=== PATIENT | female | born 1940 | race Caucasian/White ===

== ENCOUNTER 2019-01-11 17:31 | Inpatient (IN) | payer BC ==
--- NOTE | 2019-01-11 18:19 | PDOC ---
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 The symptom started on Monday all of sudden a/w watery diarrhea x 1 episode. She went to [facility] from Monday to Monday and evaluated for dizziness. Workups include ECHO and CT head were negative. She's diagnosed with dehydration and received fluids as treatment. While at [place], she also had a fever of 104 per her sister. The worsening dizziness prompted her to come in to the ED here at [facility]. She usually ambulates with a walker and now unable to ambulate and having poor PO intake from the dizziness. Denies fever, chills, sob, chest pain, abd pain. 01/11/19 19:04 Orthostatic BP is negative. Will need imaging to r/o ischemic stroke. Paged neurology sonogram technician regarding MRI w/ MRA or just MRI. Sent UA/UC, CMP, CBC, CXR Past History - Past Medical History Allergies/Adverse Reactions: Allergies Allergy/AdvReac Type Severity Reaction Status Date / Time aspirin Allergy Unknown Verified 01/11/19 17:52 cortisone Allergy Unknown Verified 01/11/19 17:52 Penicillins Allergy Unknown Verified 01/11/19 17:52 ibuprofen [From Motrin] Allergy Verified 01/11/19 17:52 tetanus immune globulin Allergy Verified 01/11/19 17:52 anti-inflammatories Allergy Unknown Uncoded 01/11/19 17:52 Home Medications: Ambulatory Orders Alendronate Sodium [Binosto] 70 mg PO WEEKLY 01/11/19 Clopidogrel Bisulfate [Plavix] 75 mg PO DAILY 01/11/19 Docusate Sodium 100 mg PO BID 01/11/19 Duloxetine HCl [Cymbalta -] 60 mg PO DAILY 01/11/19 Loratadine 10 mg PO DAILY 01/11/19 Meclizine HCl 25 mg PO DAILY 01/11/19 Ranitidine [Zantac -] 150 mg PO DAILY 01/11/19 Anemia: No Asthma: No Cancer: No Cardiac Disorders: No CVA: Yes COPD: Yes CHF: No Dementia: No Diabetes: No GI Disorders: Yes (GERD. CONSTIPATION.) Disorders: No HTN: Yes Hypercholesterolemia: No Liver Disease: No Psychiatric Problems: Yes (DEPRESSION.) Seizures: No Thyroid Disease: No - Surgical History Abdominal Surgery: No Appendectomy: No Cardiac Surgery: No Cholecystectomy: No Lung Surgery: No Neurologic Surgery: No Orthopedic Surgery: Yes (1996 R Knee repair) - Suicide/Smoking/Psychosocial Hx Smoking History: Never smoked Have you smoked in the past 12 months: No Number of Cigarettes Smoked Daily: 14 If you are a former smoker, when did you quit?: January 2016 Information on smoking cessation initiated: No 'Breaking Loose' booklet given: 03/04/16 Hx Alcohol Use: No Drug/Substance Use Hx: No Substance Use Type: None Hx Substance Use Treatment: No Review of Systems - Review of Systems Able to Perform ROS?: Yes Is the patient limited Barbadian proficient: No Constitutional: Yes: Loss of Appetite. No: Chills, Fever, Weakness Respiratory: No: Cough, Shortness of Breath Cardiac (ROS): No: Chest Pain ABD/GI: No: Nausea, Vomiting Musculoskeletal: Yes: Back Pain Neurological: Yes: Headache, Numbness, Unsteady Gait *Physical Exam - Vital Signs Last Vital Signs Temp Pulse Resp BP Pulse Ox 98.3 F 79 16 112/59 L 92 L 01/11/19 17:31 01/11/19 17:31 01/11/19 17:31 01/11/19 17:31 01/11/19 17:31 - Physical Exam General Appearance: Yes: Appropriately Dressed. No: Apparent Distress Neck: positive: Supple. negative: Carotid bruit Respiratory/Chest: positive: Lungs Clear, Normal Breath Sounds Cardiovascular: positive: Regular Rhythm, Regular Rate, S1, S2. negative: Edema , Murmur Gastrointestinal/Abdominal: positive: Normal Bowel Sounds. negative: Tender Neurologic: positive: Fully Oriented, Alert, Numbness, Sensory Deficit. negative: Facial Droop, Confused ED Treatment Course - LABORATORY CBC & Chemistry Diagram: 01/12/19 07:00 01/12/19 07:00 *DC/Admit/Observation/Transfer Diagnosis at time of Disposition: HCAP (healthcare-associated pneumonia), Dizziness Falls Qualifiers: Encounter type: subsequent encounter Qualified Code(s): W19.XXXD - Unspecified fall, subsequent encounter - Discharge Dispostion Condition at time of disposition: Fair - Referrals - Patient Instructions - Post Discharge Activity
[2019-01-11 18:59] VITALS: BMI 27.3
--- NOTE | 2019-01-11 18:59 | PDOC ---
Attending Attestation - Resident Resident Name: Kevin Mckeon - ED Attending Attestation I have performed the following: I have examined & evaluated the patient, The case was reviewed & discussed with the resident, I agree w/resident's findings & plan, Exceptions are as noted - HPI HPI: 01/11/19 18:58 78 yo F h/o prior cVA left sided weakness here with n/v/d recently admitted to [facility] for 3 day, discharged 2 days ago. /co worsening weakness and vertigo. pt states she was tryng to get up from commode and felt worse weakness and dizziness. does have h/o prior vertigo from old strokes. does report cough. no n/v no diarreha. no headache. no change to speech. 01/11/19 20:30 - Physicial Exam PE: 01/11/19 20:31 awake alert lungs left base with crackles with wheeze, heart reg rr no mrg abd soft nt nd. ext wwp no edema. no calf tenderness. . left upper ext 5/5 righ t5/ 5. bilat legs 5.5 dysmetria on left wih finger to nose testing. CN II - XiI intact. - Medical Decision Making 01/11/19 20:32 78 yo F with h/o prior cva , vertigo , her with worsenign weakness, dizziness. dysmetria on left arm. otherwise strength intact. speech clear left lung crackles. differential infection worsening old cva sxs such as uti or pna, electrolyte abnormality, anemia, cva . plan ct head. labs cxr ua. pt with pna on cxr will treat for hcap. repeat ct head. may require repeat MRI to evaluate cerebellum. nuero consult dr Hernandez 01/11/19 20:34 NIH Stroke Scale - Initial Evaluation Level of consciousness: Alert Ask patient the month and their age: Answers both correctly Ask patient to open & close eyes; make fist and let go: Obeys both correctly Best gaze (horizontal eye movement): Normal Visual field testing: No visual field loss Facial paresis (Show teeth/raise eyebrows/close eyes tight): Normal symmetrical movement Motor Function: Left Arm: Normal Motor Function: Right Arm: Normal (extends arm 90 (or 45) degrees for 10 seconds without drift Motor Function: Left Leg: Normal (extends leg 30 degrees for 5 seconds without drift) Motor Function: Right Leg: Normal (extends leg 30 degrees for 5 seconds without drift) Limb Ataxia: Present in one limb (left arm.) Sensory(Use pinprick test arms,legs,trunk,face/side to side): Normal Best language (Describe picture, name items, read sentences): No Aphasia Dysarthria (read several words): Normal articulation Extinction and Inattention: No abnormality - Total Score NIH Stroke Scale Score: 1
--- NOTE | 2019-01-11 19:23 | PDOC ---
*Physical Exam - Vital Signs Last Vital Signs Temp Pulse Resp BP Pulse Ox 98.3 F 79 16 112/59 L 92 L 01/11/19 17:31 01/11/19 17:31 01/11/19 17:31 01/11/19 17:31 01/11/19 17:31 ED Treatment Course - LABORATORY CBC & Chemistry Diagram: 01/11/19 19:10 01/11/19 19:00 - RADIOLOGY Radiology Studies Ordered: Category Date Time Status HEAD CT WITHOUT CONTRAST [CT] Stat CT Scan 01/11/19 19:19 Ordered Medical Decision Making - Medical Decision Making 01/11/19 19:20 Patient signed out by resident Dr. Mckeon. In short patient is 78 with frequent falls, prior CVA with L sided weakness, basline ambulates with walker presenting with dizziness for 5 days and poor oral intake Seen at [facility] 4 days ago with negative ECHO and CT believed to have dehydration and recieved fluid resucitation ED Course: pending cbc, cmp, trop, ua cxr, head CT 01/11/19 19:[address] Hernandez who would like CT prior to MRI or MRI/MRA 01/11/19 19:58 CXR: L sided consolidation perihilar, midline airway, appropriate vascular markings, no blunting of costophrenic angle, no cardiomegaly, as read by this senior underwriter and attending. On exam with crackles and wheezes will dose levo and van duoneb tx admit for intractable dizziness, pna, r/o stroke *DC/Admit/Observation/Transfer Diagnosis at time of Disposition: Falls, HCAP (healthcare-associated pneumonia), Dizziness - Discharge Dispostion Condition at time of disposition: Fair Decision to Admit order: Yes - Referrals Referrals: Fiona Diane [Primary Care Provider] - - Patient Instructions - Post Discharge Activity NIH Stroke Scale - Last Known Well Date/Time & Onset Date Last Known Well: 01/07/19 Time Last Known Well: 12:00 - Initial Evaluation Level of consciousness: Alert Ask patient the month and their age: Answers both correctly Ask patient to open & close eyes; make fist and let go: Obeys both correctly Best gaze (horizontal eye movement): Normal Visual field testing: No visual field loss Facial paresis (Show teeth/raise eyebrows/close eyes tight): Normal symmetrical movement Motor Function: Left Arm: Normal Motor Function: Right Arm: Normal (extends arm 90 (or 45) degrees for 10 seconds without drift Motor Function: Left Leg: Normal (extends leg 30 degrees for 5 seconds without drift) Motor Function: Right Leg: Normal (extends leg 30 degrees for 5 seconds without drift) Limb Ataxia: No ataxia Sensory(Use pinprick test arms,legs,trunk,face/side to side): Normal Best language (Describe picture, name items, read sentences): No Aphasia Dysarthria (read several words): Normal articulation Extinction and Inattention: No abnormality - Total Score NIH Stroke Scale Score: 0
[2019-01-11 19:29] LABS: BASO % 0.8 % (0-2.0); EOS % 1.9 % (0-4.5); HEMATOCRIT 45.5 % (32.4-45.2); HEMOGLOBIN 14.9 GM/dL (10.7-15.3); LYMPH % 10.9 % (8-40); MCH 32.2 pg (25.7-33.7); MCHC 32.8 g/dl (32.0-36.0); MEAN CELL VOLUME 98.4 fl (80-96); MEAN PLT VOLUME 8.8 fl (7.5-11.1); MONO % 9.2 % (3.8-10.2); NEUT % 77.2 % (42.8-82.8); PLATELET COUNT 224 K/MM3 (134-434); RBC 4.63 M/mm3 (3.60-5.2); RDW 16.2 % (11.6-15.6); WHITE BLOOD COUNT 7.5 K/mm3 (4.0-10.0)
[2019-01-11 19:57] LABS: ALBUMIN 3.4 g/dl (3.4-5.0); ALK PHOS 114 U/L (45-117); ANION GAP 10 MMOL/L (8-16); BILIRUBIN,TOTAL 0.6 mg/dL (0.2-1); BLOOD UREA NITROGEN 16 mg/dL (7-18); CALCIUM 8.6 mg/dL (8.5-10.1); CHLORIDE 104 mmol/L (98-107); CO2 25 mmol/L (21-32); CREATININE 0.7 mg/dL (0.55-1.3); GLUCOSE,RANDOM 112 mg/dL (74-106); MAGNESIUM 2.1 mg/dL (1.8-2.4); POTASSIUM 4.1 mmol/L (3.5-5.1); SGOT/AST 18 U/L (15-37); SGPT/ALT 15 U/L (13-61); SODIUM 139 mmol/L (136-145); TOT PROT 7.3 g/dl (6.4-8.2)
[2019-01-11] MEDS ORDERED: ALBUTEROL SO4 2.5/IPRATROPIUM 0.5 INH SOL 3 ML VIAL.NEB. NEB ONE ×2 (20:03→20:39)
[2019-01-11] MEDS ORDERED: VANCOMYCIN HCL 1,500 MG in DEXTROSE 5%-WATER - 500 ML IVPB ONE (20:03)
--- NOTE | 2019-01-11 21:17 | HP ---
CHIEF COMPLAINT: dizziness PCP: Christelle HISTORY OF PRESENT ILLNESS: 78yF with PMH CVA s/p left sided weakness/unsteady gait presented to the ED with dizziness x 6 days. Pt presented to [facility] on 01/06 and was admitted for 3 days. She was treated with IVF and released. Pt reported that her dizziness had resolved in the hospital and then recurred when she was back home. Her sister reported to the ED staff that she had a fever at [place]. Pt denies fever, chills, cough, SOB, abdominal pain, N/V/D. ER course was notable for: (1) CXR with L perihilar consolidation (2) CT head pending Recent Travel: pt denies PAST MEDICAL HISTORY: CVA s/p left sided weakness/unsteady gait, macular degeneration, chronic LE pain , GERD, COPD, depression PAST SURGICAL HISTORY: R knee surgery 1996 Social History: Smoking: currently smokes 1/2 PPD, used to "smoke more", smoking since her 20s Alcohol: pt denies Drugs: pt denies Family History: unk Allergies aspirin Allergy (Unknown, Verified 01/11/19 17:52) cortisone Allergy (Unknown, Verified 01/11/19 17:52) Penicillins Allergy (Unknown, Verified 01/11/19 17:52) ibuprofen [From Motrin] Allergy (Verified 01/11/19 17:52) tetanus immune globulin Allergy (Verified 01/11/19 17:52) anti-inflammatories Allergy (Unknown, Uncoded 01/11/19 17:52) HOME MEDICATIONS: 3 Medication Instructions Recorded Alendronate Sodium [Binosto] 70 mg PO WEEKLY 01/11/19 Clopidogrel Bisulfate [Plavix] 75 mg PO DAILY 01/11/19 Docusate Sodium 100 mg PO BID 01/11/19 Duloxetine HCl [Cymbalta -] 60 mg PO DAILY 01/11/19 Loratadine 10 mg PO DAILY 01/11/19 Meclizine HCl 25 mg PO DAILY 01/11/19 Ranitidine [Zantac -] 150 mg PO DAILY 01/11/19 REVIEW OF SYSTEMS CONSTITUTIONAL: Absent: fever, chills, diaphoresis, generalized weakness, malaise, loss of appetite, weight change HEENT: Absent: rhinorrhea, nasal congestion, throat pain, throat swelling, difficulty swallowing, mouth swelling, ear pain, eye pain, visual changes CARDIOVASCULAR: Absent: chest pain, syncope, palpitations, irregular heart rate, lightheadedness , peripheral edema RESPIRATORY: Absent: cough, shortness of breath, dyspnea with exertion, orthopnea, wheezing, stridor, hemoptysis GASTROINTESTINAL: Absent: abdominal pain, abdominal distension, nausea, vomiting, diarrhea, constipation, melena, hematochezia GENITOURINARY: Absent: dysuria, frequency, urgency, hesitancy, hematuria, flank pain, genital pain MUSCULOSKELETAL: Absent: myalgia, arthralgia, joint swelling, back pain, neck pain SKIN: Absent: rash, itching, pallor HEMATOLOGIC/IMMUNOLOGIC: Absent: easy bleeding, easy bruising, lymphadenopathy, frequent infections ENDOCRINE: Absent: unexplained weight gain, unexplained weight loss, heat intolerance, cold intolerance NEUROLOGIC: Present: dizziness Absent: headache, focal weakness or paresthesias, unsteady gait, seizure, mental status changes, bladder or bowel incontinence PSYCHIATRIC: Absent: anxiety, depression, suicidal or homicidal ideation, hallucinations. PHYSICAL EXAMINATION Vital Signs - 24 hr 3 01/11/19 01/11/19 17:31 19:37 Temperature 98.3 F Pulse Rate 79 Pulse Rate [ 91 H Right Radial] Respiratory 16 18 Rate Blood Pressure 112/59 L Blood Pressure 121/71 [Left Arm] O2 Sat by Pulse 92 L 95 Oximetry (%) GENERAL: Awake, alert, and fully oriented, in no acute distress. HEAD: Normal with no signs of trauma. EYES: Pupils equal, round and reactive to light, extraocular movements intact, sclera anicteric, conjunctiva clear. No lid lag. EARS, NOSE, THROAT: Ears normal, nares patent, oropharynx clear without exudates. Moist mucous membranes. NECK: Normal range of motion, supple without lymphadenopathy, JVD, or masses. LUNGS: + crackles left mid and left base, occ rhonchi. No wheezing. No accessory muscle use. HEART: Regular rate and rhythm, normal S1 and S2 without murmur, rub or gallop. ABDOMEN: Soft, nontender, not distended, normoactive bowel sounds, no guarding, no rebound, no masses. No hepatomegaly or splenomegaly. MUSCULOSKELETAL: Normal range of motion at all joints. No bony deformities or tenderness. No CVA tenderness. UPPER EXTREMITIES: 2+ pulses, warm, well-perfused. No cyanosis. No clubbing. No peripheral edema. LOWER EXTREMITIES: 2+ pulses, warm, well-perfused. No calf tenderness. No peripheral edema. NEUROLOGICAL: Cranial nerves II-XII grossly intact. Normal speech. PSYCHIATRIC: Cooperative. Good eye contact. Appropriate mood and affect. SKIN: Warm, dry, normal turgor, no rashes or lesions noted, normal capillary refill. chronic vascular changes bilat lower extremities Laboratory Results - last 24 hr 3 01/11/19 01/11/19 19:00 19:10 WBC 7.5 RBC 4.63 Hgb 14.9 Hct 45.5 H MCV 98.4 H MCH 32.2 MCHC 32.8 RDW 16.2 H Plt Count 224 MPV 8.8 Absolute Neuts (auto) 5.8 Neutrophils % 77.2 D Lymphocytes % 10.9 D Monocytes % 9.2 Eosinophils % 1.9 D Basophils % 0.8 Nucleated RBC % 0 Sodium 139 Potassium 4.1 Chloride 104 Carbon Dioxide 25 Anion Gap 10 BUN 16 Creatinine 0.7 Creat Clearance w eGFR 80.72 Random Glucose 112 H Calcium 8.6 Magnesium 2.1 Total Bilirubin 0.6 AST 18 ALT 15 Alkaline Phosphatase 114 Creatine Kinase 39 Troponin I < 0.02 Total Protein 7.3 Albumin 3.4 Radiology Reports CXR: final read pending, ?perihilar infiltrate ASSESSMENT/PLAN: 78yF with PMH CVA s/p left sided weakness/unsteady gait, macular degeneration, chronic LE pain, GERD, COPD, depression presented to the ED with dizziness now admitted with pneumonia, HCAP. Pneumonia - treating for HCAP given recent hospitalization - cont vancomycin and levaquin - duonebs prn - ID consult Dizziness - neurology consult appreciated - awaiting MRI results h/o CVA - cont plavix daily GERD - cont home ranitidine depression/chronic pain - cont duloxetine DVT PPX - heparin SC bid FEN - defer IVF, pt tolerating fluids - Monitor lytes and replete as indicated - low fat diet as tolerated Dispo: Pt currently requires further inpatient management of her emergent condition Visit type - Emergency Visit Emergency Visit: Yes ED Registration Date: 01/11/19 Care time: The patient presented to the Emergency Department on the above date and was hospitalized for further evaluation of their emergent condition. - New Patient This patient is new to me today: Yes Date on this admission: 01/11/19 - Critical Care Critical Care patient: No
[2019-01-11] MEDS ORDERED: ALBUTEROL SO4 2.5/IPRATROPIUM 0.5 INH SOL 3 ML VIAL.NEB. NEB PRN (21:52)
[2019-01-11] MEDS ORDERED: HEPARIN NA (PORCINE) 5,000 UNITS/ML 1ML VIAL ONE (22:01)
[2019-01-11] MEDS ORDERED: VANCOMYCIN 1 GRAM (PRE-DOCKED) 1,000 MG/250 ML BAG IVPB ONE (22:01)
[2019-01-11] MEDS: HEPARIN NA (PORCINE) 5,000 UNITS/ML 1ML VIAL SQ SCH (22:05)
[2019-01-11] MEDS ORDERED: PATIENT'S OWN MEDICATION (NON-FORMULARY) (Alendronate Sodium [Binosto] 70 MG) PO SCH (22:45)
[2019-01-12 08:19] LABS: ANION GAP 12 MMOL/L (8-16); BLOOD UREA NITROGEN 18 mg/dL (7-18); CALCIUM 8.7 mg/dL (8.5-10.1); CHLORIDE 107 mmol/L (98-107); CO2 26 mmol/L (21-32); CREATININE 0.7 mg/dL (0.55-1.3); GLUCOSE,RANDOM 83 mg/dL (74-106); MAGNESIUM 2.1 mg/dL (1.8-2.4); PHOSPHOROUS 3.3 mg/dL (2.5-4.9); POTASSIUM 4.1 mmol/L (3.5-5.1); SODIUM 146 mmol/L (136-145)
[2019-01-12 08:25] LABS: BASO % 0.6 % (0-2.0); HEMATOCRIT 43.2 % (32.4-45.2); HEMOGLOBIN 14.1 GM/dL (10.7-15.3); LYMPH % 16.1 % (8-40); MCH 32.1 pg (25.7-33.7); MCHC 32.8 g/dl (32.0-36.0); MEAN CELL VOLUME 97.9 fl (80-96); MEAN PLT VOLUME 8.8 fl (7.5-11.1); MONO % 13.2 % (3.8-10.2); NEUT % 68.1 % (42.8-82.8); PLATELET COUNT 208 K/MM3 (134-434); RBC 4.41 M/mm3 (3.60-5.2); RDW 16.2 % (11.6-15.6); WHITE BLOOD COUNT 6.1 K/mm3 (4.0-10.0)
[2019-01-12] MEDS ORDERED: DOCUSATE SODIUM 100 MG CAPSULE (FP) PO SCH (10:00)
[2019-01-12] MEDS ORDERED: RANITIDINE HCL 150 MG TABLET (FP) PO SCH (10:00)
[2019-01-12] MEDS ORDERED: CLOPIDOGREL BISULFATE 75 MG TABLET (FP) PO SCH (10:00)
[2019-01-12] MEDS ORDERED: LORATADINE 10 MG TABLET PO SCH (10:00)
[2019-01-12] MEDS ORDERED: DULoxetine HCL 30 MG CAPSULE.DR (FP) PO SCH (10:00)
--- NOTE | 2019-01-12 10:35 | CON.NEURO ---
Consult Consult Specialty:: David Referred by:: ER - History of Present Illness History of Present Illness: 78-year-old right-handed female patient with present medical history significant for coronary artery disease and hypertension who presented with about 10 days history of difficulty with dizziness patient describes lightheadedness no true vertigo patient presented to [facility] had a CAT scan of the head was found to be dehydrated received IV fluid and was discharged home patient continued to have the dizziness presented to [facility] for second opinion. Since admission to the hospital no report of any associated symptoms of double vision blurry vision difficulty swallowing patient had breakfast this morning no nausea no vomiting no numbness or tingling. - History Source History Provided By: Patient, Medical Record Limitations to Obtaining History: No Limitations - Past Medical History MIXER WET POUR: Yes: CVA Cardio/Vascular: Yes: Hyperlipdemia Gastrointestinal: Yes: GERD ...: No - Past Surgical History Past Surgical History: Yes: None - Alcohol/Substance Use Hx Alcohol Use: No History of Substance Use: reports: None - Smoking History Smoking history: Current every day smoker Have you smoked in the past 12 months: Yes Aproximately how many cigarettes per day: 10 If you are a former smoker, when did you quit?: January 2016 - Social History ADL: Support Services History of Recent Travel: No Home Medications - Allergies Allergies/Adverse Reactions: Allergies Allergy/AdvReac Type Severity Reaction Status Date / Time aspirin Allergy Unknown Verified 01/11/19 17:52 cortisone Allergy Unknown Verified 01/11/19 17:52 Penicillins Allergy Unknown Verified 01/11/19 17:52 ibuprofen [From Motrin] Allergy Verified 01/11/19 17:52 tetanus immune globulin Allergy Verified 01/11/19 17:52 anti-inflammatories Allergy Unknown Uncoded 01/11/19 17:52 - Home Medications Home Medications: Ambulatory Orders Alendronate Sodium [Binosto] 70 mg PO WEEKLY 01/11/19 Clopidogrel Bisulfate [Plavix] 75 mg PO DAILY 01/11/19 Docusate Sodium 100 mg PO BID 01/11/19 Duloxetine HCl [Cymbalta -] 60 mg PO DAILY 01/11/19 Loratadine 10 mg PO DAILY 01/11/19 Meclizine HCl 25 mg PO DAILY 01/11/19 Ranitidine [Zantac -] 150 mg PO DAILY 01/11/19 Family Disease History - Family Disease History Family Disease History: Heart Disease: Father, Other: Mother (HTN) Physical Exam-Neuro Vital Signs: Vital Signs Temperature 98.4 F 01/12/19 06:00 Pulse Rate 78 01/12/19 06:00 Respiratory Rate 20 01/11/19 23:42 Blood Pressure 145/77 01/12/19 06:00 O2 Sat by Pulse Oximetry (%) 97 01/11/19 23:42 Constitutional: Yes: Well Nourished Neck: Yes: WNL Labs: CBC, BMP 01/12/19 07:00 01/12/19 07:00 - Neuro Exam Level Of Consciousness: Yes: Oriented to Person, Oriented to Place, Oriented to Time Eyes: Yes: PERRLA Speech: WNL Dominant Hand: Right Cranial Nerves II-XII Intact: No (Left HH) Gag: Present Response to light touch: Abnormal Response to pain prick: Abnormal Motor Strength: 3/5: Left Arm, Right Arm, Left Leg, Right Leg Imaging - Results MRI: Image Reviewed Problem List - Problems (1) Dizziness Assessment/Plan: acute right occipital CVA Right TALENT ASSOCIATE distribution 1. Transfer the patient to the telemetry stroke unit. 2. Carotid Doppler. 4. Echocardiogram. 5. Full aspirin. 6. Fall precautions. 7. Acute rehabilitation. 8. SCDs. 9. Physical therapy. 10. Lipid profile with statin. Code(s): R42 - DIZZINESS AND GIDDINESS
[2019-01-12] MEDS: HEPARIN NA (PORCINE) 5,000 UNITS/ML 1ML VIAL SQ SCH ×2 (10:46→21:23)
--- NOTE | 2019-01-12 11:36 | EKG ---
Test Reason : Blood Pressure : / mmHG Vent. Rate : 086 BPM Atrial Rate : 086 BPM P-R Int : 148 ms QRS Dur : 086 ms QT Int : 374 ms P-R-T Axes : 027 -14 031 degrees QTc Int : 447 ms NORMAL SINUS RHYTHM POSSIBLE LEFT ATRIAL ENLARGEMENT POSSIBLE ANTERIOR INFARCT (CITED ON OR BEFORE 11-JAN-2019) ABNORMAL ECG WHEN COMPARED WITH ECG OF 03-MAR-2016 23:45, NO SIGNIFICANT CHANGE WAS FOUND Confirmed by GAMALIEL TRAYLOR MD ([id number]) on 01/12/2019 11:36:18 AM Referred By: Confirmed By:GAMALIEL TRAYLOR MD
--- NOTE | 2019-01-12 12:42 | PN ---
Progress Note, Physician History of Present Illness: events noted and chart reviewed Patient is at the bedside with her daughter Patient is alert awake oriented Follows command According to the daughter yesterday in the afternoon she had an episode of questionable altered sensorium again I spoke to the registered nurse to patient with no loss of consciousness questionable shaking tremors from the Parkinson' s disease - Current Medication List Current Medications: Active Medications Albuterol/Ipratropium (Duoneb -) 1 amp NEB Q4H PRN PRN Reason: SHORTNESS OF BREATH Clopidogrel Bisulfate (Plavix -) 75 mg PO DAILY [facility] Last Admin: 01/12/19 10:46 Dose: 75 mg Docusate Sodium (Colace -) 100 mg PO BID [facility] Last Admin: 01/12/19 10:46 Dose: 100 mg Duloxetine HCl (Cymbalta -) 60 mg PO DAILY [facility] Last Admin: 01/12/19 10:46 Dose: 60 mg Heparin Sodium (Porcine) (Heparin -) 5,000 unit SQ BID [facility] Last Admin: 01/12/19 10:46 Dose: 5,000 unit Levofloxacin (Levaquin 750 Mg Premixed Ivpb -) 750 mg in 150 mls @ 150 mls/hr IVPB DAILY [facility]; Protocol Loratadine (Claritin -) 10 mg PO DAILY [facility] Last Admin: 01/12/19 10:46 Dose: 10 mg Ranitidine HCl (Zantac -) 150 mg PO DAILY [facility] Last Admin: 01/12/19 10:46 Dose: 150 mg - Objective Vital Signs: Vital Signs Temperature 98.4 F 01/12/19 06:00 Pulse Rate 78 01/12/19 06:00 Respiratory Rate 20 01/11/19 23:42 Blood Pressure 145/77 01/12/19 06:00 O2 Sat by Pulse Oximetry (%) 97 01/11/19 23:42 Constitutional: Yes: Well Nourished Eyes: Yes: WNL Neurological: Yes: Alert, Oriented, Babinski negative ...Motor Strength: WNL Labs: CBC, BMP 01/12/19 07:00 01/12/19 07:00 Problem List - Problems (1) Dizziness Assessment/Plan: EEG is within normal Questionable cardiac arrhythmia Doubt TIA Parkinson's disease 1. Neurologically patient stable 2. Start carbidopa 10/100 twice daily. 3. Physical therapy. 4. Fall precautions. 5. Neurologically patient can be discharged home with visiting nurse services Code(s): R42 - DIZZINESS AND GIDDINESS
[2019-01-12 13:51] LABS: EPI CELLS 10.2 /HPF (0-5); PH,URINE 6.5 (5.0-8.0); URINE APPEARANCE CLOUDY; URINE BACTERIA 734.6 /hpf (NEGATIVE); URINE BILIRUBIN NEGATIVE (NEGATIVE); URINE CASTS 38 /hpf (0-8); URINE COLOR YELLOW; URINE GLUCOSE (UA) NEGATIVE (NEGATIVE); URINE KETONE 1+ (NEGATIVE); URINE LEUK ESTERASE 3+ (NEGATIVE); URINE NITRITE NEGATIVE (NEGATIVE); URINE PROTEIN TRACE (NEGATIVE); URINE RBC 7 /hpf (0-4); URINE WBC 86 /hpf (0-5)
--- NOTE | 2019-01-12 14:25 | PN ---
Progress Note, Physician - Current Medication List Current Medications: Active Medications Albuterol/Ipratropium (Duoneb -) 1 amp NEB Q4H PRN PRN Reason: SHORTNESS OF BREATH Clopidogrel Bisulfate (Plavix -) 75 mg PO DAILY [facility] Last Admin: 01/12/19 10:46 Dose: 75 mg Docusate Sodium (Colace -) 100 mg PO BID [facility] Last Admin: 01/12/19 10:46 Dose: 100 mg Duloxetine HCl (Cymbalta -) 60 mg PO DAILY [facility] Last Admin: 01/12/19 10:46 Dose: 60 mg Heparin Sodium (Porcine) (Heparin -) 5,000 unit SQ BID [facility] Last Admin: 01/12/19 10:46 Dose: 5,000 unit Levofloxacin (Levaquin 750 Mg Premixed Ivpb -) 750 mg in 150 mls @ 150 mls/hr IVPB DAILY [facility]; Protocol Loratadine (Claritin -) 10 mg PO DAILY [facility] Last Admin: 01/12/19 10:46 Dose: 10 mg Ranitidine HCl (Zantac -) 150 mg PO DAILY [facility] Last Admin: 01/12/19 10:46 Dose: 150 mg - Objective Vital Signs: Vital Signs Temperature 98.2 F 01/12/19 13:22 Pulse Rate 92 H 01/12/19 13:22 Respiratory Rate 20 01/12/19 13:22 Blood Pressure 109/69 01/12/19 13:22 O2 Sat by Pulse Oximetry (%) 95 01/12/19 09:00 Cardiovascular: Yes: S1, S2 Respiratory: Yes: Regular, CTA Bilaterally Gastrointestinal: Yes: Normal Bowel Sounds, Soft Labs: CBC, BMP 01/12/19 07:00 01/12/19 07:00 Problem List - Problems (1) CVA (cerebral vascular accident) Assessment/Plan: neuro consult mri noted--completed stroke statin on plavix tele cardio Code(s): I63.9 - CEREBRAL INFARCTION, UNSPECIFIED (2) Pneumonia Assessment/Plan: questionable on cxr ct of chest Code(s): J18.9 - PNEUMONIA, UNSPECIFIED ORGANISM (3) Dizziness Assessment/Plan: due to above Code(s): R42 - DIZZINESS AND GIDDINESS
[2019-01-12] MEDS ORDERED: ALBUTEROL SO4 2.5/IPRATROPIUM 0.5 INH SOL 3 ML VIAL.NEB. NEB PRN (14:35)
--- NOTE | 2019-01-12 17:24 | CON.CARD ---
Consult Consult Specialty:: Cardiology - History of Present Illness Chief Complaint: Weakness and vertigo History of Present Illness: This is a 78 year old female with a PMH of a prior CVA with left sided weakness. She has frequent falls. She was admitted to [facility] from Monday to Monday and evaluated for dizziness. Workups include ECHO and CT head were negative. She's diagnosed with dehydration and received fluids as treatment. While at [place], she also had a fever of 104 per her sister. The worsening dizziness prompted her to come in to the ED here. Presently she denies cardiac symptoms. 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 Cardio/Vascular: Yes: Hyperlipdemia Gastrointestinal: Yes: GERD ...: No - Past Surgical History Past Surgical History: Yes: None - Alcohol/Substance Use Hx Alcohol Use: No History of Substance Use: reports: None - Smoking History Smoking history: Current every day smoker Have you smoked in the past 12 months: Yes Aproximately how many cigarettes per day: 10 If you are a former smoker, when did you quit?: January 2016 - Social History ADL: Support Services History of Recent Travel: No Home Medications - Allergies Allergies/Adverse Reactions: Allergies Allergy/AdvReac Type Severity Reaction Status Date / Time aspirin Allergy Unknown Verified 01/11/19 17:52 cortisone Allergy Unknown Verified 01/11/19 17:52 Penicillins Allergy Unknown Verified 01/11/19 17:52 ibuprofen [From Motrin] Allergy Verified 01/11/19 17:52 tetanus immune globulin Allergy Verified 01/11/19 17:52 anti-inflammatories Allergy Unknown Uncoded 01/11/19 17:52 - Home Medications Home Medications: Ambulatory Orders Alendronate Sodium [Binosto] 70 mg PO WEEKLY 01/11/19 Clopidogrel Bisulfate [Plavix] 75 mg PO DAILY 01/11/19 Docusate Sodium 100 mg PO BID 01/11/19 Duloxetine HCl [Cymbalta -] 60 mg PO DAILY 01/11/19 Loratadine 10 mg PO DAILY 01/11/19 Meclizine HCl 25 mg PO DAILY 01/11/19 Ranitidine [Zantac -] 150 mg PO DAILY 01/11/19 Family Disease History - Family Disease History Family Disease History: Heart Disease: Father, Other: Mother (HTN) Vital Signs: Vital Signs Temperature 98.7 F 01/12/19 15:37 Pulse Rate 79 01/12/19 15:37 Respiratory Rate 20 01/12/19 15:37 Blood Pressure 117/63 01/12/19 15:37 O2 Sat by Pulse Oximetry (%) 95 01/12/19 09:00 Constitutional: Yes: No Distress Eyes: Yes: WNL HENT: Yes: WNL Neck: Yes: Supple Respiratory: Yes: Rhonchi (Minimal scattered) Gastrointestinal: Yes: Normal Bowel Sounds Cardiovascular: Yes: Regular Rate and Rhythm (NL S1S2, No MRHG) JVD: No Extremities: Yes: WNL Neurological: Yes: Alert, Oriented, Weakness (Left sided) - Other Data Labs, Other Data: CBC, BMP 01/12/19 07:00 01/12/19 07:00 Troponin, BNP 01/11/19 19:00 Troponin I < 0.02 Troponin, BNP 01/11/19 19:00 Troponin I < 0.02 Assessment/Plan 78 year old female with a PMH of a prior CVA with left sided weakness. She has frequent falls. She was admitted to [facility] from Monday to Monday and evaluated for dizziness. Workups include ECHO and CT head were negative. She 's diagnosed with dehydration and received fluids as treatment. While at [place], she also had a fever of 104 per her sister. The worsening dizziness prompted her to come in to the ED here. EKG NSR at 86 BPM with normal intervals, normal axis, and NSSTTW changes Carotid Doppler - No hemodynamically significant stenosis Agree with Lipitor and Plavix Echocardiogram is planned \
--- NOTE | 2019-01-12 19:39 | PN ---
Progress Note (short form) - Note Progress Note: ID CONSULT DICTATED PNEUMONIA CVA PCN CONTINUE EMPIRIC LEVAQUIN
[2019-01-12] MEDS: DOCUSATE SODIUM 100 MG CAPSULE (FP) PO SCH (21:23)
[2019-01-12] MEDS: ATORVASTATIN CA 40 MG TABLET (FP) PO SCH (21:23)
[2019-01-12] MEDS ORDERED: CARBIDOPA/LEVODOPA 10/100 TABLET (FP) PO SCH (22:00)
[2019-01-13] MEDS: RANITIDINE HCL 150 MG TABLET (FP) PO SCH (09:41)
[2019-01-13] MEDS: CLOPIDOGREL BISULFATE 75 MG TABLET (FP) PO SCH (09:41)
[2019-01-13] MEDS: LORATADINE 10 MG TABLET PO SCH (09:41)
[2019-01-13] MEDS: DOCUSATE SODIUM 100 MG CAPSULE (FP) PO SCH ×2 (09:41→21:18)
[2019-01-13] MEDS: DULoxetine HCL 30 MG CAPSULE.DR (FP) PO SCH (09:41)
[2019-01-13] MEDS: HEPARIN NA (PORCINE) 5,000 UNITS/ML 1ML VIAL SQ SCH ×2 (09:41→21:18)
--- NOTE | 2019-01-13 10:50 | CONS ---
INFECTIOUS DISEASE CONSULTATION DATE OF CONSULTATION: DATE OF DICTATION: 01/13/2019 HISTORY OF PRESENT ILLNESS: The patient is a 78-year-old, female with a history of stroke, evaluated for pneumonia. She was admitted to the hospital, on January 11, 2019, with worsening dizziness and diarrhea. The patient had recently been hospitalized at [facility] for dizziness. According to the notes, workup was unrevealing, including an echocardiogram and CAT scan. She was treated for dehydration. Also, according to the notes, she was noted to have fever of 104 at [facility]. She is now admitted with worsening dizziness and felt to have an acute stroke. CAT scan of the chest was performed and showed a left lower lobe consolidation. She denies any chest pain, at the present time. No complaints of dyspnea, cough or sputum production. PAST MEDICAL HISTORY: Positive for macular degeneration, prior stroke with left hemiparesis, hypertension, coronary artery disease. ALLERGIES: ASPIRIN; PENICILLIN; CORTISONE; IBUPROFEN. MEDICATIONS: Plavix, Colace, Cymbalta, Zantac. SOCIAL HISTORY: Former smoker. SYSTEMS REVIEW: Neurologic: As per HPI. Cardiac: Negative chest pain or palpitations. Respiratory: As per HPI. Gastrointestinal: Positive for diarrhea. Genitourinary: Negative for urinary tract infection. LABORATORY DATA: White count 6.0, hematocrit 43.2, platelet count 208. BUN 18, creatinine 0.7. Urinalysis: White cells 86. Liver enzymes normal. Urine culture pending. PHYSICAL EXAMINATION: General: On exam, she is awake. She is in no acute distress, conversant. Vital Signs: Temperature 97.9, blood pressure 130/57, pulse 76 regular, respirations 18 per minute. Eyes: Sclerae are anicteric. Heart: Heart sounds S1, S2. Lungs: Diminished breath sounds bilaterally. Abdomen: Soft. No tenderness elicited. No mass, rebound or rigidity. Extremities: Edema 1+. IMPRESSION: 1. Acute cerebrovascular accident. 2. Left lower lobe pneumonia. 3. PENICILLIN allergy. PLAN: Will obtain cultures, urine legionella, and pneumococcal antigen, sputum culture. Empiric antibiotic coverage in this PENICILLIN-allergic patient with Levaquin and vancomycin. Aspiration precautions. Will follow. Thank you for the kind referral. KEKE HUERTAS M.D. [id number]
--- NOTE | 2019-01-13 11:49 | PN ---
Progress Note, Physician - Current Medication List Current Medications: Active Medications Albuterol/Ipratropium (Duoneb -) 1 amp NEB Q4H PRN PRN Reason: SHORTNESS OF BREATH Atorvastatin Calcium (Lipitor -) 40 mg PO [facility] Last Admin: 01/12/19 21:23 Dose: 40 mg Clopidogrel Bisulfate (Plavix -) 75 mg PO DAILY [facility] Last Admin: 01/13/19 09:41 Dose: 75 mg Docusate Sodium (Colace -) 100 mg PO BID [facility] Last Admin: 01/13/19 09:41 Dose: 100 mg Duloxetine HCl (Cymbalta -) 60 mg PO DAILY [facility] Last Admin: 01/13/19 09:41 Dose: 60 mg Heparin Sodium (Porcine) (Heparin -) 5,000 unit SQ BID [facility] Last Admin: 01/13/19 09:41 Dose: 5,000 unit Levofloxacin (Levaquin 750 Mg Premixed Ivpb -) 750 mg in 150 mls @ 100 mls/hr IVPB [facility]; Protocol Last Admin: 01/12/19 21:23 Dose: 100 mls/hr Loratadine (Claritin -) 10 mg PO DAILY [facility] Last Admin: 01/13/19 09:41 Dose: 10 mg Ranitidine HCl (Zantac -) 150 mg PO DAILY [facility] Last Admin: 01/13/19 09:41 Dose: 150 mg - Objective Vital Signs: Vital Signs Temperature 98 F 01/13/19 10:00 Pulse Rate 76 01/13/19 10:00 Respiratory Rate 20 01/13/19 10:00 Blood Pressure 105/55 L 01/13/19 10:00 O2 Sat by Pulse Oximetry (%) 96 01/13/19 09:00 Cardiovascular: Yes: Regular Rate and Rhythm Respiratory: Yes: Regular, CTA Bilaterally Gastrointestinal: Yes: Normal Bowel Sounds, Soft Labs: CBC, BMP 01/12/19 07:00 01/12/19 07:00 Problem List - Problems (1) CVA (cerebral vascular accident) Assessment/Plan: neuro consult noted mri noted--completed stroke statin on plavix tele cardio noted--await echo Code(s): I63.9 - CEREBRAL INFARCTION, UNSPECIFIED (2) Pneumonia Assessment/Plan: ABX PER ID CT CHEST NOTED--INTERSTITIAL CHANGES Code(s): J18.9 - PNEUMONIA, UNSPECIFIED ORGANISM (3) Dizziness Assessment/Plan: due to above Code(s): R42 - DIZZINESS AND GIDDINESS
--- NOTE | 2019-01-13 14:24 | PN ---
Progress Note, Physician History of Present Illness: AWAKE, ALERT IN BED NO COMPLAINTS OFFERRED NO C/O CHEST PAIN/ DYSPNEA NO C/O FEVER/ CHILLS - Current Medication List Current Medications: Active Medications Albuterol/Ipratropium (Duoneb -) 1 amp NEB Q4H PRN PRN Reason: SHORTNESS OF BREATH Atorvastatin Calcium (Lipitor -) 40 mg PO [facility] Last Admin: 01/12/19 21:23 Dose: 40 mg Clopidogrel Bisulfate (Plavix -) 75 mg PO DAILY [facility] Last Admin: 01/13/19 09:41 Dose: 75 mg Docusate Sodium (Colace -) 100 mg PO BID [facility] Last Admin: 01/13/19 09:41 Dose: 100 mg Duloxetine HCl (Cymbalta -) 60 mg PO DAILY [facility] Last Admin: 01/13/19 09:41 Dose: 60 mg Heparin Sodium (Porcine) (Heparin -) 5,000 unit SQ BID [facility] Last Admin: 01/13/19 09:41 Dose: 5,000 unit Levofloxacin (Levaquin 750 Mg Premixed Ivpb -) 750 mg in 150 mls @ 100 mls/hr IVPB [facility]; Protocol Last Admin: 01/12/19 21:23 Dose: 100 mls/hr Loratadine (Claritin -) 10 mg PO DAILY [facility] Last Admin: 01/13/19 09:41 Dose: 10 mg Ranitidine HCl (Zantac -) 150 mg PO DAILY [facility] Last Admin: 01/13/19 09:41 Dose: 150 mg - Objective Vital Signs: Vital Signs Temperature 98 F 01/13/19 10:00 Pulse Rate 76 01/13/19 10:00 Respiratory Rate 20 01/13/19 10:00 Blood Pressure 105/55 L 01/13/19 10:00 O2 Sat by Pulse Oximetry (%) 96 01/13/19 09:00 Constitutional: Yes: No Distress Eyes: Yes: Conjunctiva Clear Cardiovascular: Yes: Regular Rate and Rhythm, S1, S2 Respiratory: Yes: Other (CREPITATIONS L BASE) Gastrointestinal: Yes: Normal Bowel Sounds, Soft. No: Tenderness Edema: No Labs: CBC, BMP 01/12/19 07:00 01/12/19 07:00 Assessment/Plan LLL PNEUMONIA PCN ALLERGY CVA AWAIT C/S CONTINUE LEVAQUIN
--- NOTE | 2019-01-13 19:50 | PN ---
Progress Note, Physician History of Present Illness: events noted in chart reviewed Alert awake oriented Less dizzy Total tolerated the fluid No nausea Patient with history of macular degeneration in the left eye and she is not aware of the homonomous hemianopsia - Current Medication List Current Medications: Active Medications Albuterol/Ipratropium (Duoneb -) 1 amp NEB Q4H PRN PRN Reason: SHORTNESS OF BREATH Atorvastatin Calcium (Lipitor -) 40 mg PO [facility] Last Admin: 01/12/19 21:23 Dose: 40 mg Clopidogrel Bisulfate (Plavix -) 75 mg PO DAILY [facility] Last Admin: 01/13/19 09:41 Dose: 75 mg Docusate Sodium (Colace -) 100 mg PO BID [facility] Last Admin: 01/13/19 09:41 Dose: 100 mg Duloxetine HCl (Cymbalta -) 60 mg PO DAILY [facility] Last Admin: 01/13/19 09:41 Dose: 60 mg Heparin Sodium (Porcine) (Heparin -) 5,000 unit SQ BID [facility] Last Admin: 01/13/19 09:41 Dose: 5,000 unit Levofloxacin (Levaquin 750 Mg Premixed Ivpb -) 750 mg in 150 mls @ 100 mls/hr IVPB [facility]; Protocol Last Admin: 01/12/19 21:23 Dose: 100 mls/hr Loratadine (Claritin -) 10 mg PO DAILY [facility] Last Admin: 01/13/19 09:41 Dose: 10 mg Ranitidine HCl (Zantac -) 150 mg PO DAILY [facility] Last Admin: 01/13/19 09:41 Dose: 150 mg - Objective Vital Signs: Vital Signs Temperature 98.1 F 01/13/19 17:41 Pulse Rate 87 01/13/19 17:41 Respiratory Rate 18 01/13/19 17:41 Blood Pressure 120/65 01/13/19 17:41 O2 Sat by Pulse Oximetry (%) 96 01/13/19 09:00 Constitutional: Yes: Well Nourished Eyes: Yes: WNL Neurological: Yes: Alert, Oriented, Cran Nerves II-XII Intact ...Motor Strength: WNL Labs: CBC, BMP 01/12/19 07:00 01/12/19 07:00 Problem List - Problems (1) Dizziness Assessment/Plan: 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
[2019-01-13] MEDS ORDERED: MAG HYDROX/AL HYDROX/SIMETH 30 ML UNIT-DOSE CUP PO ONE (20:35)
[2019-01-13] MEDS: ATORVASTATIN CA 40 MG TABLET (FP) PO SCH (21:18)
[2019-01-14] MEDS: DULoxetine HCL 30 MG CAPSULE.DR (FP) PO SCH (10:00)
[2019-01-14] MEDS: RANITIDINE HCL 150 MG TABLET (FP) PO SCH (10:00)
[2019-01-14] MEDS: HEPARIN NA (PORCINE) 5,000 UNITS/ML 1ML VIAL SQ SCH ×2 (10:00→21:39)
[2019-01-14] MEDS: DOCUSATE SODIUM 100 MG CAPSULE (FP) PO SCH ×2 (10:00→21:39)
[2019-01-14] MEDS: CLOPIDOGREL BISULFATE 75 MG TABLET (FP) PO SCH (10:00)
[2019-01-14] MEDS: LORATADINE 10 MG TABLET PO SCH (10:00)
--- NOTE | 2019-01-14 13:36 | PN ---
Progress Note, Physician History of Present Illness: AWAKE, ALERT IN BED NO COMPLAINTS OFFERRED NO C/O CHEST PAIN/ DYSPNEA NO C/O FEVER/ CHILLS - Current Medication List Current Medications: Active Medications Albuterol/Ipratropium (Duoneb -) 1 amp NEB Q4H PRN PRN Reason: SHORTNESS OF BREATH Atorvastatin Calcium (Lipitor -) 40 mg PO [facility] Last Admin: 01/13/19 21:18 Dose: 40 mg Clopidogrel Bisulfate (Plavix -) 75 mg PO DAILY [facility] Last Admin: 01/14/19 10:00 Dose: 75 mg Docusate Sodium (Colace -) 100 mg PO BID [facility] Last Admin: 01/14/19 10:00 Dose: 100 mg Duloxetine HCl (Cymbalta -) 60 mg PO DAILY [facility] Last Admin: 01/14/19 10:00 Dose: 60 mg Heparin Sodium (Porcine) (Heparin -) 5,000 unit SQ BID [facility] Last Admin: 01/14/19 10:00 Dose: 5,000 unit Levofloxacin (Levaquin 750 Mg Premixed Ivpb -) 750 mg in 150 mls @ 100 mls/hr IVPB [facility]; Protocol Last Admin: 01/13/19 21:18 Dose: 100 mls/hr Loratadine (Claritin -) 10 mg PO DAILY [facility] Last Admin: 01/14/19 10:00 Dose: 10 mg Ranitidine HCl (Zantac -) 150 mg PO DAILY [facility] Last Admin: 01/14/19 10:00 Dose: 150 mg - Objective Vital Signs: Vital Signs Temperature 97.8 F 01/14/19 08:46 Pulse Rate 75 01/14/19 08:46 Respiratory Rate 18 01/14/19 08:55 Blood Pressure 121/73 01/14/19 08:46 O2 Sat by Pulse Oximetry (%) 96 01/14/19 08:55 Constitutional: Yes: No Distress Cardiovascular: Yes: Regular Rate and Rhythm, S1, S2 Respiratory: Yes: Other (+ crepitations L base) Gastrointestinal: Yes: Normal Bowel Sounds, Soft. No: Tenderness Labs: CBC, BMP 01/12/19 07:00 01/12/19 07:00 Assessment/Plan LLL PNEUMONIA PCN ALLERGY CVA CONTINUE LEVAQUIN
--- NOTE | 2019-01-14 13:55 | ECHO ---
Name: MOLLY MEDINA Exam:Adult Echocardiogram Study Date: 01/14/2019 09:30 AM Age: 78 yrs Reason For Study: cva Height: 60 in Weight: 159 lb BSA: 1.7 m2 MMode/2D Measurements & Calculations IVSd: 0.75 cm Ao root diam: 3.7 cm LVIDd: 4.8 cm LA dimension: 4.4 cm LVIDs: 3.3 cm ACS: 1.7 cm LVPWd: 1.1 cm IVSs: 0.73 cm LVPWs: 0.95 cm EDV(Teich): 110.1 ml ESV(Teich): 43.5 ml Doppler Measurements & Calculations MV E max lazarus: 76.7 cm/sec Ao V2 max: 142.5 cm/sec MV A max lazarus: 106.8 cm/sec Ao max P.1 mmHg MV E/A: 0.72 TR max lazarus: 238.4 cm/sec Med Peak E' Lazarus: 3.9 cm/sec TR max P.8 mmHg Med E/e': 19.4 Lat Peak E' Lazarus: 7.3 cm/sec Lat E/e': 10.4 Procedure A complete two-dimensional transthoracic echocardiogram was performed (2D, M-mode, Doppler and color flow Doppler). Left Ventricle The left ventricle is normal in size. Left ventricular systolic function is normal. Ejection Fraction = 60- 65%. Diastolic dysfunction, Grade II (pseudonormalization pattern). Ratio E/E'= 15. No regional wall motion abnormalities noted. Right Ventricle The right ventricle is normal size. The right ventricular systolic function is normal. Atria The left atrium is mildly dilated. Right atrial size is normal. Mitral Valve There is moderate mitral annular calcification. The mitral valve chordae are thickened and/or calcifi ed. There is mild mitral valve thickening. There is no mitral regurgitation noted. Tricuspid Valve The tricuspid valve is normal in structure and function. There is mild to moderate tricuspid regurgit ation. Pulmonary artery systolic pressure is at least 30 mmHg if RA pressure is assumed 3 mmHg. Aortic Valve There is mild aortic sclerosis.;. No aortic regurgitation is present. Pulmonic Valve The pulmonic valve is not well visualized. Great Vessels The aortic root is normal size. Pericardium/Pleura There is no pericardial effusion. Interpretation Summary The left ventricle is normal in size. Left ventricular systolic function is normal. No regional wall motion abnormalities noted. Ejection Fraction = 60-65%. Diastolic dysfunction, Grade II (pseudonormalization pattern). Ratio E/E'= 15 The right ventricular systolic function is normal. The left atrium is mildly dilated. Right atrial size is normal. There is moderate mitral annular calcification. The mitral valve chordae are thickened and/or calcified. There is mild mitral valve thickening. There is no mitral regurgitation noted. There is mild to moderate tricuspid regurgitation. Pulmonary artery systolic pressure is at least 30 mmHg if RA pressure is assumed 3 mmHg There is mild aortic sclerosis. No aortic regurgitation is present. There is no pericardial effusion. Previous study is not available for comparison Mark Pineda MD 01/14/2019 01:54 PM
--- NOTE | 2019-01-14 14:25 | PN ---
Progress Note, Physician Chief Complaint: No chest pain or sob No recurrent lightheadedness Ambulating in room No events on tele History of Present Illness: 78 year old female with a PMH of a prior CVA with left sided weakness. She has frequent falls. She was admitted to [facility] from Monday to Monday and evaluated for dizziness. Workups include ECHO and CT head were negative. She 's diagnosed with dehydration and received fluids as treatment. While at [place], she also had a fever of 104 per her sister. The worsening dizziness prompted her to come in to the ED here. - Current Medication List Current Medications: Active Medications Albuterol/Ipratropium (Duoneb -) 1 amp NEB Q4H PRN PRN Reason: SHORTNESS OF BREATH Atorvastatin Calcium (Lipitor -) 40 mg PO [facility] Last Admin: 01/13/19 21:18 Dose: 40 mg Clopidogrel Bisulfate (Plavix -) 75 mg PO DAILY [facility] Last Admin: 01/14/19 10:00 Dose: 75 mg Docusate Sodium (Colace -) 100 mg PO BID [facility] Last Admin: 01/14/19 10:00 Dose: 100 mg Duloxetine HCl (Cymbalta -) 60 mg PO DAILY [facility] Last Admin: 01/14/19 10:00 Dose: 60 mg Heparin Sodium (Porcine) (Heparin -) 5,000 unit SQ BID [facility] Last Admin: 01/14/19 10:00 Dose: 5,000 unit Levofloxacin (Levaquin 750 Mg Premixed Ivpb -) 750 mg in 150 mls @ 100 mls/hr IVPB [facility]; Protocol Last Admin: 01/13/19 21:18 Dose: 100 mls/hr Loratadine (Claritin -) 10 mg PO DAILY [facility] Last Admin: 01/14/19 10:00 Dose: 10 mg Ranitidine HCl (Zantac -) 150 mg PO DAILY [facility] Last Admin: 01/14/19 10:00 Dose: 150 mg - Objective Vital Signs: Vital Signs Temperature 97.8 F 01/14/19 08:46 Pulse Rate 75 01/14/19 08:46 Respiratory Rate 18 01/14/19 08:55 Blood Pressure 121/73 01/14/19 08:46 O2 Sat by Pulse Oximetry (%) 96 01/14/19 08:55 Constitutional: Yes: No Distress Neck: Yes: Supple Cardiovascular: Yes: Regular Rate and Rhythm, S1, S2. No: JVD, Murmur Respiratory: Yes: CTA Bilaterally Gastrointestinal: Yes: Soft Edema: No Labs: CBC, BMP 01/12/19 07:00 01/12/19 07:00 Problem List - Problems (1) Dizziness Code(s): R42 - DIZZINESS AND GIDDINESS Assessment/Plan 78 year old female with a PMH of a prior CVA with left sided weakness. She has frequent falls. She was admitted to [facility] from Monday to Monday and evaluated for dizziness. Workups include ECHO and CT head were negative. She 's diagnosed with dehydration and received fluids as treatment. While at [place], she also had a fever of 104 per her sister. The worsening dizziness prompted her to come in to the ED here. No cardiac cause found for dizziness. EKG NSR at 86 BPM with normal intervals, normal axis, and NSSTTW changes Carotid Doppler - No hemodynamically significant stenosis Echocardiogram with normal LVEF and no significant valve disease. MRI with old CVA Tele sinus and uneventful Agree with atorvastatin and clopidogrel Will sign off at this time. No further inpatient cardiac work up indicated.
--- NOTE | 2019-01-14 16:11 | PN ---
Progress Note, Physician Chief Complaint: Dizziness LLL Pneumonia CVA History of Present Illness: Previous notes and events reviewed awake and alert NAD Patient has decresed urine output--bladder scan show 272cc residual urine in bladder denies chest pain or SOB - Current Medication List Current Medications: Active Medications Albuterol/Ipratropium (Duoneb -) 1 amp NEB Q4H PRN PRN Reason: SHORTNESS OF BREATH Atorvastatin Calcium (Lipitor -) 40 mg PO [facility] Last Admin: 01/13/19 21:18 Dose: 40 mg Clopidogrel Bisulfate (Plavix -) 75 mg PO DAILY [facility] Last Admin: 01/14/19 10:00 Dose: 75 mg Docusate Sodium (Colace -) 100 mg PO BID [facility] Last Admin: 01/14/19 10:00 Dose: 100 mg Duloxetine HCl (Cymbalta -) 60 mg PO DAILY [facility] Last Admin: 01/14/19 10:00 Dose: 60 mg Heparin Sodium (Porcine) (Heparin -) 5,000 unit SQ BID [facility] Last Admin: 01/14/19 10:00 Dose: 5,000 unit Levofloxacin (Levaquin 750 Mg Premixed Ivpb -) 750 mg in 150 mls @ 100 mls/hr IVPB [facility]; Protocol Last Admin: 01/13/19 21:18 Dose: 100 mls/hr Loratadine (Claritin -) 10 mg PO DAILY [facility] Last Admin: 01/14/19 10:00 Dose: 10 mg Ranitidine HCl (Zantac -) 150 mg PO DAILY [facility] Last Admin: 01/14/19 10:00 Dose: 150 mg - Objective Vital Signs: Vital Signs Temperature 98 F 01/14/19 14:10 Pulse Rate 84 01/14/19 14:10 Respiratory Rate 18 01/14/19 14:10 Blood Pressure 123/60 01/14/19 14:10 O2 Sat by Pulse Oximetry (%) 96 01/14/19 08:55 Constitutional: Yes: No Distress, Calm Eyes: Yes: Conjunctiva Clear HENT: Yes: Atraumatic Cardiovascular: Yes: Regular Rate and Rhythm Respiratory: Yes: Regular, Diminished, On Nasal O2 Gastrointestinal: Yes: Normal Bowel Sounds, Soft Musculoskeletal: Yes: Muscle Weakness Extremities: Yes: WNL Edema: No Neurological: Yes: Alert, Oriented Psychiatric: Yes: Alert, Oriented Labs: CBC, BMP 01/12/19 07:00 01/12/19 07:00 Microbiology 01/13/19 00:50 Urine - Urine Clean Catch Urine Culture - Final NO GROWTH OBTAINED 01/13/19 09:35 Blood - Peripheral Venous Blood Culture - Preliminary NO GROWTH OBTAINED AFTER 24 HOURS, INCUBATION TO CONTINUE FOR 4 DAYS. 01/13/19 09:43 Blood - Peripheral Venous Blood Culture - Preliminary NO GROWTH OBTAINED AFTER 24 HOURS, INCUBATION TO CONTINUE FOR 4 DAYS. 01/13/19 11:00 Urine For Antigen Detection Legionella Antigen - Final 01/13/19 11:00 Urine For Antigen Detection Streptococcus pneumoniae Antigen (M - Final Problem List - Problems (1) Dizziness Assessment/Plan: -resolved -2/2 CVA Code(s): R42 - DIZZINESS AND GIDDINESS (2) Fall Assessment/Plan: -fall precaution -PT Code(s): W19.XXXA - UNSPECIFIED FALL, INITIAL ENCOUNTER Qualifiers: Encounter type: subsequent encounter Qualified Code(s): W19.XXXD - Unspecified fall, subsequent encounter (3) Pneumonia Assessment/Plan: -ID on board -no leukocytosis -afebrile -continue Levaquin IVPB -Chest CT scan shows bilateral interstitial thickening in lower lobes, cannot rule out interstitial pneumonic infiltrates Code(s): J18.9 - PNEUMONIA, UNSPECIFIED ORGANISM (4) CVA (cerebral vascular accident) Assessment/Plan: -neuro checks -cardio and neuro on board -Echo with EF 60-65% -carotid US results reviewed -brain MRI reviewed -continue atorvastatin and plavix -tele monitoring Code(s): I63.9 - CEREBRAL INFARCTION, UNSPECIFIED (5) Urine retention Assessment/Plan: -bladder scan show 272cc residual urine in bladder -FC placed -urology consult Code(s): R33.9 - RETENTION OF URINE, UNSPECIFIED Assessment/Plan see problem list dvt ppx SNF for rehab on discharge
--- NOTE | 2019-01-14 16:49 | CON.GU ---
Consult Consult Specialty:: urology Reason for Consultation:: urinary retention - History of Present Illness Chief Complaint: urinary retention History of Present Illness: Patient with history of increased frequency in desire to void while in bed. Only once in 10 times did the patient void. She voided 200cc and had a small post void residual on bladder scan of 240 cc. A can was then placed and 300 cc drained over ten minutes. The patient denies history of recurrent uti/ urologic surgery/gross hematuria or previous episodes of urinary retention. - History Source History Provided By: Patient - Past Medical History SHORTS SIFTER: Yes: CVA Cardio/Vascular: Yes: Hyperlipdemia Gastrointestinal: Yes: GERD ...: No - Past Surgical History Past Surgical History: Yes: None - Alcohol/Substance Use Hx Alcohol Use: No History of Substance Use: reports: None - Smoking History Smoking history: Current every day smoker Have you smoked in the past 12 months: Yes Aproximately how many cigarettes per day: 10 If you are a former smoker, when did you quit?: January 2016 - Social History ADL: Support Services History of Recent Travel: No Home Medications - Allergies Allergies/Adverse Reactions: Allergies Allergy/AdvReac Type Severity Reaction Status Date / Time aspirin Allergy Unknown Verified 01/11/19 17:52 cortisone Allergy Unknown Verified 01/11/19 17:52 Penicillins Allergy Unknown Verified 01/11/19 17:52 ibuprofen [From Motrin] Allergy Verified 01/11/19 17:52 tetanus immune globulin Allergy Verified 01/11/19 17:52 anti-inflammatories Allergy Unknown Uncoded 01/11/19 17:52 - Home Medications Home Medications: Ambulatory Orders Alendronate Sodium [Binosto] 70 mg PO WEEKLY 01/11/19 Clopidogrel Bisulfate [Plavix] 75 mg PO DAILY 01/11/19 Docusate Sodium 100 mg PO BID 01/11/19 Duloxetine HCl [Cymbalta -] 60 mg PO DAILY 01/11/19 Loratadine 10 mg PO DAILY 01/11/19 Meclizine HCl 25 mg PO DAILY 01/11/19 Ranitidine [Zantac -] 150 mg PO DAILY 01/11/19 Family Disease History - Family Disease History Family Disease History: Heart Disease: Father, Other: Mother (HTN) Physical Exam- Vital Signs: Vital Signs Temperature 98 F 01/14/19 14:10 Pulse Rate 84 01/14/19 14:10 Respiratory Rate 18 01/14/19 14:10 Blood Pressure 123/60 01/14/19 14:10 O2 Sat by Pulse Oximetry (%) 96 01/14/19 08:55 Constitutional: Yes: Well Nourished, No Distress, Calm Eyes: Yes: WNL, Conjunctiva Clear, EOM Intact HENT: Yes: WNL, Atraumatic, Normocephalic Neck: Yes: WNL, Supple, Trachea Midline Cardiovascular: Yes: Regular Rate and Rhythm Respiratory: Yes: Regular Gastrointestinal: Yes: WNL, Normal Bowel Sounds, Soft Renal/: Yes: WNL Kidneys: Yes: WNL Pelvis: Yes: WNL (can catheter draining clear urine) External Genitalia: Yes: WNL Labs: CBC, BMP 01/12/19 07:00 01/12/19 07:00 Assessment/Plan imp urinary retention plan would d/c can in am and promote ambulation. patient should be able to void once she is ambulating
[2019-01-14] MEDS: ATORVASTATIN CA 40 MG TABLET (FP) PO SCH (21:39)
[2019-01-15 07:46] LABS: HEMATOCRIT 40.9 % (32.4-45.2); HEMOGLOBIN 13.6 GM/dL (10.7-15.3); MCH 32.7 pg (25.7-33.7); MCHC 33.2 g/dl (32.0-36.0); MEAN CELL VOLUME 98.4 fl (80-96); MEAN PLT VOLUME 9.2 fl (7.5-11.1); PLATELET COUNT 199 K/MM3 (134-434); RBC 4.16 M/mm3 (3.60-5.2); RDW 16.5 % (11.6-15.6); WHITE BLOOD COUNT 6.1 K/mm3 (4.0-10.0)
[2019-01-15 08:12] LABS: ALBUMIN 2.8 g/dl (3.4-5.0); ALK PHOS 91 U/L (45-117); ANION GAP 5 MMOL/L (8-16); BILIRUBIN,TOTAL 0.5 mg/dL (0.2-1); BLOOD UREA NITROGEN 22 mg/dL (7-18); CALCIUM 8.9 mg/dL (8.5-10.1); CHLORIDE 105 mmol/L (98-107); CO2 29 mmol/L (21-32); CREATININE 0.7 mg/dL (0.55-1.3); GLUCOSE,RANDOM 91 mg/dL (74-106); POTASSIUM 4.3 mmol/L (3.5-5.1); SGOT/AST 10 U/L (15-37); SGPT/ALT 12 U/L (13-61); SODIUM 139 mmol/L (136-145); TOT PROT 6.7 g/dl (6.4-8.2)
[2019-01-15] MEDS: DOCUSATE SODIUM 100 MG CAPSULE (FP) PO SCH ×2 (10:18→21:30)
[2019-01-15] MEDS: LORATADINE 10 MG TABLET PO SCH (10:19)
[2019-01-15] MEDS: RANITIDINE HCL 150 MG TABLET (FP) PO SCH (10:19)
[2019-01-15] MEDS: CLOPIDOGREL BISULFATE 75 MG TABLET (FP) PO SCH (10:19)
[2019-01-15] MEDS: HEPARIN NA (PORCINE) 5,000 UNITS/ML 1ML VIAL SQ SCH ×2 (10:19→21:30)
[2019-01-15] MEDS: DULoxetine HCL 30 MG CAPSULE.DR (FP) PO SCH (10:19)
--- NOTE | 2019-01-15 11:56 | PN ---
Progress Note, Physician Chief Complaint: Dizziness LLL Pneumonia CVA History of Present Illness: NAD, feeling better still has can, seen by urology Seen by Neurology - Current Medication List Current Medications: Active Medications Albuterol/Ipratropium (Duoneb -) 1 amp NEB Q4H PRN PRN Reason: SHORTNESS OF BREATH Atorvastatin Calcium (Lipitor -) 40 mg PO [facility] Last Admin: 01/14/19 21:39 Dose: 40 mg Clopidogrel Bisulfate (Plavix -) 75 mg PO DAILY [facility] Last Admin: 01/15/19 10:19 Dose: 75 mg Docusate Sodium (Colace -) 100 mg PO BID [facility] Last Admin: 01/15/19 10:18 Dose: 100 mg Duloxetine HCl (Cymbalta -) 60 mg PO DAILY [facility] Last Admin: 01/15/19 10:19 Dose: 60 mg Heparin Sodium (Porcine) (Heparin -) 5,000 unit SQ BID [facility] Last Admin: 01/15/19 10:19 Dose: 5,000 unit Levofloxacin (Levaquin 750 Mg Premixed Ivpb -) 750 mg in 150 mls @ 100 mls/hr IVPB [facility]; Protocol Last Admin: 01/14/19 21:40 Dose: 100 mls/hr Loratadine (Claritin -) 10 mg PO DAILY [facility] Last Admin: 01/15/19 10:19 Dose: 10 mg Ranitidine HCl (Zantac -) 150 mg PO DAILY [facility] Last Admin: 01/15/19 10:19 Dose: 150 mg Tamsulosin HCl (Flomax -) 0.4 mg PO DAILY@0830 [facility] - Objective Vital Signs: Vital Signs Temperature 97.8 F 01/15/19 08:10 Pulse Rate 76 01/15/19 08:10 Respiratory Rate 20 01/15/19 08:10 Blood Pressure 110/45 L 01/15/19 08:10 O2 Sat by Pulse Oximetry (%) 95 01/15/19 08:05 Constitutional: Yes: Well Nourished, No Distress, Calm Cardiovascular: Yes: Regular Rate and Rhythm Respiratory: Yes: Regular Gastrointestinal: Yes: Normal Bowel Sounds, Soft Genitourinary: Yes: Can Present Musculoskeletal: Yes: Muscle Weakness Extremities: Yes: WNL Edema: No Peripheral Pulses WNL: Yes Neurological: Yes: Alert, Oriented Psychiatric: Yes: Alert, Oriented Labs: CBC, BMP 01/15/19 05:50 01/15/19 05:50 Problem List - Problems (1) Pneumonia Assessment/Plan: -LLL -ID on board -IV blg-[id number] 4 doses-change to PO for another 6 days -afebrile -no leukocytosis -CT Chest:Bilateral interstitial thickening that is more prominent in the lower lobes suggestive of interstitial lung disease. Cannot rule out interstitial pneumonic infiltrates. There is no gross evidence of pulmonary venous congestion. No gross airspace disease, pneumothorax or pleural effusion identified. Moderate to large hiatus hernia and moderate to marked elevation of the right hemidiaphragm resulting in mild bibasal atelectatic changes. Included upper abdomen appears unremarkable. Code(s): J18.9 - PNEUMONIA, UNSPECIFIED ORGANISM (2) Urine retention Assessment/Plan: -Seen by Urology -D/C can -Start Tamsulosin 0.4 mg po daily -Bladder scan in 12 hours -Re-insert can if retaining >200 ml Code(s): R33.9 - RETENTION OF URINE, UNSPECIFIED (3) CVA (cerebral vascular accident) Assessment/Plan: -Seen by Urology -Physical therapy -MRI brain:Completed old large infarct in the right occipital lobe with large area of encephalomalacia. Extensive ischemic changes in both cerebral hemispheres and in the rocio sequela most probably to long-standing hypertension and small vessel disease would No evidence of acute infarction. No evidence acute intracerebral hemorrhage, subdural fluid collection or hydrocephalus. -U/S carotid:Small to moderate-sized plaques in the distal right common carotid artery as well as at the bifurcation/bulb and proximal internal carotid artery without evidence of hemodynamically significant stenosis. There is also intimal thickening and small plaques at the left common carotid bifurcation/bulb without evidence of hemodynamically significant stenosis. Code(s): I63.9 - CEREBRAL INFARCTION, UNSPECIFIED Assessment/Plan see problem list Physical therapy D/C to SNF upon discharge
[2019-01-15] MEDS: TAMSULOSIN HCL 0.4 MG CAP PO SCH (16:36)
[2019-01-15] MEDS: NICOTINE 14 MG/24 HOURS TOPICAL PATCH TD SCH (16:36)
[2019-01-15] MEDS: ATORVASTATIN CA 40 MG TABLET (FP) PO SCH (21:30)
[2019-01-16] MEDS: CLOPIDOGREL BISULFATE 75 MG TABLET (FP) PO SCH (09:35)
[2019-01-16] MEDS: TAMSULOSIN HCL 0.4 MG CAP PO SCH (09:35)
[2019-01-16] MEDS: DULoxetine HCL 30 MG CAPSULE.DR (FP) PO SCH (09:35)
[2019-01-16] MEDS: DOCUSATE SODIUM 100 MG CAPSULE (FP) PO SCH (09:36)
[2019-01-16] MEDS: RANITIDINE HCL 150 MG TABLET (FP) PO SCH (09:36)
[2019-01-16] MEDS: NICOTINE 14 MG/24 HOURS TOPICAL PATCH TD SCH (09:36)
[2019-01-16] MEDS: HEPARIN NA (PORCINE) 5,000 UNITS/ML 1ML VIAL SQ SCH (09:36)
[2019-01-16] MEDS: LORATADINE 10 MG TABLET PO SCH (09:36)
--- NOTE | 2019-01-16 11:06 | DS ---
Physical Examination Vital Signs: Vital Signs Temperature 98.3 F 01/16/19 06:00 Pulse Rate 80 01/16/19 06:00 Respiratory Rate 20 01/16/19 06:00 Blood Pressure 123/57 L 01/16/19 06:00 O2 Sat by Pulse Oximetry (%) 96 01/15/19 21:00 Findings/Remarks: 78yF with PMH CVA s/p left sided weakness/unsteady gait presented to the ED with dizziness x 6 days. Pt presented to [facility] on 01/06 and was admitted for 3 days. She was treated with IVF and released. Pt reported that her dizziness had resolved in the hospital and then recurred when she was back home. Her sister reported to the ED staff that she had a fever at [place]. Pt denies fever, chills, cough, SOB, abdominal pain, N/V/D. treat with IV levaquin, transitioned to PO levaquin for LLL pneumonia Constitutional: Yes: Well Nourished, No Distress, Calm Cardiovascular: Yes: Regular Rate and Rhythm Respiratory: Yes: Regular Gastrointestinal: Yes: Normal Bowel Sounds, Soft Renal/: Yes: Incontinence Musculoskeletal: Yes: Muscle Weakness Extremities: Yes: WNL Edema: No Peripheral Pulses WNL: Yes Neurological: Yes: Alert, Oriented Psychiatric: Yes: Alert, Oriented Labs: CBC, BMP 01/15/19 05:50 01/15/19 05:50 Discharge Summary Reason For Visit: DIZZINESS/HEALTHCARE-ASSOCIATED PNEUMONIA Current Active Problems Dizziness (Acute) Fall (Acute) HCAP (healthcare-associated pneumonia) (Acute) Pneumonia (Acute) Urine retention (Acute) Hospital Course: Laboratory Last Values WBC 6.1 K/mm3 (4.0-10.0) 01/15/19 05:50 RBC 4.16 M/mm3 (3.60-5.2) 01/15/19 05:50 Hgb 13.6 GM/dL (10.7-15.3) 01/15/19 05:50 Hct 40.9 % (32.4-45.2) 01/15/19 05:50 MCV 98.4 fl (80-96) H 01/15/19 05:50 MCH 32.7 pg (25.7-33.7) 01/15/19 05:50 MCHC 33.2 g/dl (32.0-36.0) 01/15/19 05:50 RDW 16.5 % (11.6-15.6) H 01/15/19 05:50 Plt Count 199 K/MM3 (134-434) 01/15/19 05:50 MPV 9.2 fl (7.5-11.1) 01/15/19 05:50 Absolute Neuts (auto) 4.2 K/mm3 (1.5-8.0) 01/12/19 07:00 Neutrophils % 68.1 % (42.8-82.8) 01/12/19 07:00 Lymphocytes % 16.1 % (8-40) D 01/12/19 07:00 Monocytes % 13.2 % (3.8-10.2) H 01/12/19 07:00 Eosinophils % 2.0 % (0-4.5) 01/12/19 07:00 Basophils % 0.6 % (0-2.0) 01/12/19 07:00 Nucleated RBC % 0 % (0-0) 01/12/19 07:00 Sodium 139 mmol/L (136-145) 01/15/19 05:50 Potassium 4.3 mmol/L (3.5-5.1) 01/15/19 05:50 Chloride 105 mmol/L (98-107) 01/15/19 05:50 Carbon Dioxide 29 mmol/L (21-32) 01/15/19 05:50 Anion Gap 5 MMOL/L (8-16) L 01/15/19 05:50 BUN 22 mg/dL (7-18) H 01/15/19 05:50 Creatinine 0.7 mg/dL (0.55-1.3) 01/15/19 05:50 Creat Clearance w eGFR 80.72 (>60) 01/15/19 05:50 Random Glucose 91 mg/dL (74-106) 01/15/19 05:50 Hemoglobin A1c % 5.6 % (4.2-6.3) 01/13/19 05:30 Calcium 8.9 mg/dL (8.5-10.1) 01/15/19 05:50 Phosphorus 3.3 mg/dL (2.5-4.9) 01/12/19 07:00 Magnesium 2.1 mg/dL (1.8-2.4) 01/12/19 07:00 Total Bilirubin 0.5 mg/dL (0.2-1) 01/15/19 05:50 AST 10 U/L (15-37) L 01/15/19 05:50 ALT 12 U/L (13-61) L 01/15/19 05:50 Alkaline Phosphatase 91 U/L (45-117) 01/15/19 05:50 Ammonia 14.30 umol/L (11-32) 01/12/19 15:55 Creatine Kinase 39 U/L (26-192) 01/11/19 19:00 Troponin I < 0.02 ng/ml (0.00-0.05) 01/11/19 19:00 C-Reactive Protein 4.3 MG/DL (0.00-0.3) H 01/12/19 15:55 Total Protein 6.7 g/dl (6.4-8.2) 01/15/19 05:50 Albumin 2.8 g/dl (3.4-5.0) L 01/15/19 05:50 Triglycerides 78 mg/dL (0-150) 01/13/19 05:30 Cholesterol 177 mg/dL (50-200) 01/13/19 05:30 Total LDL Cholesterol 94 mg/dL (5-100) 01/13/19 05:30 HDL Cholesterol 69 mg/dL (40-60) H 01/13/19 05:30 Vitamin B12 888 pg/ml (193-986) 01/12/19 15:55 TSH 1.76 uIU/ml (0.358-3.74) 01/13/19 05:30 Urine Color Yellow 01/12/19 12:48 Urine Appearance Cloudy 01/12/19 12:48 Urine pH 6.5 (5.0-8.0) 01/12/19 12:48 Ur Specific [place]mer 1.014 (1.010-1.035) 01/12/19 12:48 Urine Protein Trace (NEGATIVE) 01/12/19 12:48 Urine Glucose (UA) Negative (NEGATIVE) 01/12/19 12:48 Urine Ketones 1+ (NEGATIVE) H 01/12/19 12:48 Urine Blood 2+ (NEGATIVE) H 01/12/19 12:48 Urine Nitrite Negative (NEGATIVE) 01/12/19 12:48 Urine Bilirubin Negative (NEGATIVE) 01/12/19 12:48 Urine Urobilinogen 1.0 mg/dL (0.2-1.0) 01/12/19 12:48 Ur Leukocyte Esterase 3+ (NEGATIVE) H 01/12/19 12:48 Urine WBC (Auto) 86 /hpf (0-5) 01/12/19 12:48 Urine RBC (Auto) 7 /hpf (0-4) 01/12/19 12:48 Urine Casts (Auto) 38 /hpf (0-8) 01/12/19 12:48 U Pathogenic Cast Auto None seen (NEGATIVE) 01/12/19 12:48 U Epithel Cells (Auto) 10.2 /HPF (0-5) 01/12/19 12:48 Urine Bacteria (Auto) 734.6 /hpf (NEGATIVE) 01/12/19 12:48 Microbiology 01/13/19 09:35 Blood - Peripheral Venous Blood Culture - Preliminary NO GROWTH OBTAINED AFTER 72 HOURS, INCUBATION TO CONTINUE FOR 2 DAYS. 01/13/19 09:43 Blood - Peripheral Venous Blood Culture - Preliminary NO GROWTH OBTAINED AFTER 72 HOURS, INCUBATION TO CONTINUE FOR 2 DAYS. 01/13/19 00:50 Urine - Urine Clean Catch Urine Culture - Final NO GROWTH OBTAINED 01/13/19 11:00 Urine For Antigen Detection Legionella Antigen - Final 01/13/19 11:00 Urine For Antigen Detection Streptococcus pneumoniae Antigen (M - Final Vital Signs Temp 98.3 F 01/16/19 06:00 Pulse 80 01/16/19 06:00 Resp 20 01/16/19 06:00 BP 123/57 L 01/16/19 06:00 Pulse Ox 96 01/15/19 21:00 Intake & Output 01/15/19 01/15/19 01/16/19 11:59 23:59 11:59 Intake Total 105 795 310 Output Total 450 250 Balance -345 545 310 Intake: IV 5 15 10 RFA #22 01/11/19 5 15 10 Oral 100 780 300 Output: Urine 450 250 Void 450 250 Other: Voiding Method Indwelling Catheter Diaper Incontinent # Unmeasured Voids Void 1 1 Bowel Movement No Condition: Stable - Instructions Disposition: CARE HOME FACILITY - Home Medications Comprehensive Discharge Medication List: Ambulatory Orders Alendronate Sodium [Binosto] 70 mg PO WEEKLY 01/11/19 Clopidogrel Bisulfate [Plavix] 75 mg PO DAILY 01/11/19 Docusate Sodium 100 mg PO BID 01/11/19 Duloxetine HCl [Cymbalta -] 60 mg PO DAILY 01/11/19 Loratadine 10 mg PO DAILY 01/11/19 Meclizine HCl 25 mg PO DAILY 01/11/19 Ranitidine [Zantac -] 150 mg PO DAILY 01/11/19
[2019-01-16 11:27] VITALS: BP 117/58; PULSE 99; TEMP 97.7
== END 2019-01-16 13:47 | DRG 194 ==
LOC: JER 17:31 → JERBED 20:25 → J6S 22:35 → J4W 01-12 14:09
PROVIDERS: ADMIT Internal Medicine; ATTEND Family Medicine
DX: J18.9 Pneumonia, unspecified organism (principal); I69.354 Hemiplegia and hemiparesis following cerebral infarction affecting left non-dominant side; H35.30 Unspecified macular degeneration; R26.81 Unsteadiness on feet; K21.9 Gastro-esophageal reflux disease without esophagitis; J44.9 Chronic obstructive pulmonary disease, unspecified; R42 Dizziness and giddiness; F32.9 Major depressive disorder, single episode, unspecified; F17.210 Nicotine dependence, cigarettes, uncomplicated; G89.29 Other chronic pain; I25.10 Atherosclerotic heart disease of native coronary artery without angina pectoris; G20 Parkinson's disease; H53.462 Homonymous bilateral field defects, left side; E86.0 Dehydration; R33.9 Retention of urine, unspecified; Z88.0 Allergy status to penicillin; W19.XXXD Unspecified fall, subsequent encounter
CPT/HCPCS: 36415; 70551-TC; 71045-TC-FY; 71250-TC; 80048; 80053; 80061; 81003; 82140; 82550; 82607; 83036; 83721; 83735; 84100; 84443; 84484; 85025; 85027; 86140; 87040; 87086; 87899; 93005; 93010; 93306-TC; 93880-TC; 97116-GP; 97161-GP; 99282-25; J1644